=== PATIENT | female | born 1995 | race Caucasian/White ===

== ENCOUNTER 2017-07-18 17:25 | Inpatient (IN) | payer OTHER ==
--- NOTE | 2017-07-18 17:44 | EDPHY ---
H & P Time Seen by Provider: 07/18/17 17:27 HPI/ROS: CHIEF COMPLAINT: Suicidal ideation HISTORY OF PRESENT ILLNESS: 22-year-old female history of depression arrives via police on an M1 hold after endorsing suicidal ideation related to argument with her boyfriend. Patient has a history of depression, never been hospitalized for suicidal ideation or suicide attempt but does note she has recurrence thoughts of suicide. She has not habits definitive plan but did make statement to her boyfriend that she may use 1 of his guns to kill herself. Denies attempt. Her Zoloft was increased approximately 8 weeks ago. REVIEW OF SYSTEMS: A ten point review of systems was performed and is negative with the exception of the items mentioned in the HPI PAST MEDICAL & SURGICAL HISTORY: Depression SOCIAL HISTORY: Denies acute alcohol or drug use PHYSICAL EXAM (Prior to examination, patient consented to physical exam, hands were washed and my usual and customary physical exam procedures followed) 1) GENERAL: Well-developed, well-nourished, alert and oriented. Tearful calm, cooperative 2) HEAD: Normocephalic, atraumatic 3) HEENT: Pupils equal, round, reactive to light bilaterally. Sclera anicteric. 4) NECK: Full range of motion, no meningeal signs. 5) LUNGS: Clear auscultation bilaterally, no wheezes, no rhonchi, no retractions. 6) HEART: Regular rate and rhythm, no murmur, no heave, no gallop. 7) ABDOMEN: No guarding, no rebound, no focal tenderness, 8) MUSCULOSKELETAL: . No peripheral edema or discoloration. 9) BACK: No visual or palpable abnormality. 10) SKIN: No rash, no petechiae. 11) Psychiatric: Patient is oriented X 3, there is no agitation. Calm cooperative, tearful DIFFERENTIAL DIAGNOSIS: In no particular include but limited to depression, suicidal ideation, homicidal ideation Constitutional: Initial Vital Signs Temperature (C) 36.8 C 07/18/17 17:30 Heart Rate 85 07/18/17 17:30 Respiratory Rate 16 07/18/17 17:30 Blood Pressure 121/88 H 07/18/17 17:30 O2 Sat (%) 95 07/18/17 17:30 O2 Delivery Mode Room Air Allergies/Adverse Reactions: No Known Allergies Allergy (Unverified 07/18/17 17:42) Home Medications: Medication Instructions Recorded Sertraline HCl [Zoloft 100mg (*)] 07/18/17 Medical Decision Making ED Course/Re-evaluation: 8:51 p.m.: Mental health evaluation complete, patient accepted for [address] [facility] [address] Anderson accepting physician. EMTALA paperwork complete. Care of patient under supervision of secondary supervising physician Dr Garcia - Data Points Laboratory Results: Laboratory Results 07/18/17 17:35 07/18/17 17:35 07/18/17 07/18/17 07/18/17 17:35 17:35 17:32 WBC 7.73 10^3/uL 10^3/uL (3.80-9.50) RBC 4.82 10^6/uL 10^6/uL (4.18-5.33) Hgb 15.7 g/dL g/dL (12.6-16.3) Hct 45.5 % % (38.0-47.0) MCV 94.4 fL fL (81.5-99.8) MCH 32.6 pg pg (27.9-34.1) MCHC 34.5 g/dL g/dL (32.4-36.7) RDW 11.6 % % (11.5-15.2) Plt Count 329 10^3/uL 10^3/uL (150-400) MPV 8.9 fL fL (8.7-11.7) Neut % (Auto) 59.4 % % (39.3-74.2) Lymph % (Auto) 29.5 % % (15.0-45.0) Wilkin % (Auto) 9.1 % % (4.5-13.0) Eos % (Auto) 1.2 % % (0.6-7.6) Baso % (Auto) 0.5 % % (0.3-1.7) Nucleat RBC Rel Count 0.0 % % (0.0-0.2) Absolute Neuts (auto) 4.60 10^3/uL 10^3/uL (1.70-6.50) Absolute Lymphs (auto) 2.28 10^3/uL 10^3/uL (1.00-3.00) Absolute Monos (auto) 0.70 10^3/uL 10^3/uL (0.30-0.80) Absolute Eos (auto) 0.09 10^3/uL 10^3/uL (0.03-0.40) Absolute Basos (auto) 0.04 10^3/uL 10^3/uL (0.02-0.10) Absolute Nucleated RBC 0.00 10^3/uL 10^3/uL (0-0.01) Immature Gran % 0.3 % % (0.0-1.1) Immature Gran # 0.02 10^3/uL 10^3/uL (0.00-0.10) Sodium 137 mEq/L mEq/L (135-145) Potassium 4.5 mEq/L mEq/L (3.5-5.2) Chloride 105 mEq/L mEq/L (97-110) Carbon Dioxide 18 mEq/l L mEq/l (22-31) Anion Gap 14 mEq/L mEq/L (8-16) BUN 11 mg/dL mg/dL (7-23) Creatinine 0.7 mg/dL mg/dL (0.6-1.0) Estimated GFR > 60 Glucose 84 mg/dL mg/dL (70-100) Calcium 10.3 mg/dL mg/dL (8.5-10.4) Salicylates < 1.0 mg/dL L mg/dL (2.0-20.0) Urine Opiates Screen NEGATIVE (NEGATIVE) Acetaminophen < 10 mcg/mL L mcg/mL (10-30) Urine Barbiturates NEGATIVE (NEGATIVE) Ur Phencyclidine Scrn NEGATIVE (NEGATIVE) Ur Amphetamine Screen NEGATIVE (NEGATIVE) U Benzodiazepines Scrn NEGATIVE (NEGATIVE) Urine Cocaine Screen NON-NEGATIVE H (NEGATIVE) U Marijuana (THC) Screen NON-NEGATIVE H (NEGATIVE) Ethyl Alcohol < 10 mg/dL mg/dL (0-10) Departure - Departure Disposition: [facility] IP Clinical Impression: Suicidal ideation, Severe major depression Condition: Fair Referrals: NONE *PRIMARY CARE P,. [Primary Care Provider] - As per Instructions
[2017-07-18 17:46] LABS: PLATELET COUNT 329 10^3/uL (150-400)
[2017-07-19] MEDS ORDERED: ACETAMINOPHEN 325 MG TAB PO PRN (00:50)
[2017-07-19] MEDS ORDERED: MAGNESIUM HYDROXIDE 30 ML UDCUP PO PRN (00:50)
[2017-07-19] MEDS ORDERED: LORazepam 0.5 MG TAB PO PRN (00:50)
[2017-07-19] MEDS ORDERED: MAG HYDROX/AL HYDROX/SIMETH 30 ML UDCUP PO PRN (00:50)
[2017-07-19] MEDS ORDERED: NICOTINE POLACRILEX 2 MG GUM B PRN (00:50)
[2017-07-19] MEDS ORDERED: NALTREXONE HCL 50 MG TAB PO ONE (13:25)
--- NOTE | 2017-07-19 14:20 | BAPA ---
[f rep st] ADMISSION PSYCHIATRIC ASSESSMENT DATE OF SERVICE: 07/19/2017 IDENTIFICATION: This is a 22-year-old single white female who lives alone in an apartment. She is a [employer] [place] student. She has never been , has no children. Her parents live in [place]. CHIEF COMPLAINT: "I just had a bad day and said something to get back at my boyfriend." HISTORY OF PRESENT ILLNESS: The patient reports she and her boyfriend were drinking all day, including having approximately 8 drinks throughout the day. They also used cocaine and cannabis. They stayed up all night and into the next day were having numerous arguments, they had a long prolonged argument after she found out that he had been having a relationship with 1 of his ex- girlfriends. After a prolonged argument, she was screaming, shouting, threatened suicide, and threatened to get 1 of his guns to kill herself. The patient was taken to the emergency room by police, admitted to the inpatient unit on an M1 hold. At that point in the ER the patient had no alcohol in her system but her urine drug screen was positive for cannabis and cocaine. Patient reports that she has had brief intense mood swings with interpersonal conflict and impulsive acting out behaviors including punching shipley, throwing things, and yelling at people since she was a child. She reports she was diagnosed with ADHD in high school and took Concerta with benefit for 3 years in High School. She reports when she transitioned to college, she did not continue to take Concerta and did not have an outpatient psychiatrist. She reports from February 2017 to April 2017 she took Zoloft for complaints of depression, anxiety. She reports no benefit from this medication and possibly feeling worse and more agitated. She reports chronic anxiety, worrying about the future. She reports this is related to the fact that she is doing poorly in school, had several incomplete classes last semester, and is having financial stressors because her parents have been paying for her apartment and her school, but she has been doing poorly in school. She also reports anxiety related to interpersonal conflicts with friends and her boyfriend. The patient does admit smoking cannabis daily. She is unsure if this is contributing to her anxiety or not. She reports she binge drinks on alcohol up to 8 drinks a day. She reports she normally binge drinks once a week. She reports using cocaine once a month. She denies any recent or past trauma. She denies any episodes of sustained elevated activity and energy or decreased need for sleep. She does report sometimes having racing thoughts following arguments with peers or family only. She reports she consistently sleeps 6-8 hours nightly. She has never gone multiple days without sleep. She denies any history of grandiose delusions or decreased need for sleep. She does report since childhood being restless, having difficulty sitting still, difficulty with sustained attention, blurting things out, interrupting people, and feeling distracted. She reports these symptoms did get better with Concerta in High School. She does report that she made her suicidal threats to get a gun and kill herself after a prolonged argument with her boyfriend. She reports this statement was a way to 'get back' at her boyfriend and denies that she actually intended to harm herself. She does report that she has not recently harmed herself or been violent toward others. The patient denies any recent auditory hallucinations or paranoia. She denies any recent change in her physical health. PAST PSYCHIATRIC HISTORY: She denies any past suicide attempts. She did superficially cut herself in high school and one year ago, denies that these episodes were suicide attempts. She denies any past psychiatric hospitalizations. She does report a history of being physically combative with her family when she is upset as a child as well as throwing things and breaking things as an adult when she is upset. She reports irritability and insomnia with Adderall trial in the past but marked improvement with ADHD symptoms with Concerta 36mg, which she took for 3 years in high school. She reports when she took Concerta, she had normal sleep and stable mood. She reports no benefit from Zoloft, which she took from February to April and possibly feeling more agitated with it. ALLERGIES: She has no known drug allergies. PAST MEDICAL HISTORY: She also has a history of wisdom teeth extractions. She reports she takes an oral contraceptive pill for her contraception and has no plans for . SOCIAL HISTORY: She was adopted. Her parents live in [place]. She has never , has no children. She is a student at the [employer]. Lives alone in apartment, has a part-time job. Denies physical or sexual abuse as a child. Denies legal issues. Denies any guns in her home. FAMILY HISTORY: Unknown. She was adopted. LABORATORIES: In the emergency room, she had a urine tox screen positive for cannabis and cocaine. Her blood alcohol level was zero at that point, that was at 5:35 p.m. yesterday. Sodium 137, potassium 4.5, creatinine 0.7, glucose 84, calcium 10.3. White blood cell count 7.7, hemoglobin 15.7, platelet count 328. OBJECTIVE: VITAL SIGNS: She is 154 cm, 48 kg with BMI of 20.7, blood pressure 112/78, pulse 84, respiratory rate 14, pulse ox 94% on room air. She is afebrile. GENERAL: She is an alert, white female in no acute distress, ambulatory and cooperative. Her speech is regular rate and rhythm. She has a briefly dysphoric affect, anxious at times. Other times has humor, other times irritable. She denies thoughts to hurt herself or others today. She describes her mood as "upset that I'm here." Her thoughts are organized. She appears restless and was pacing the halls earlier. She denies auditory hallucinations or paranoia. She has a good memory, fair insight. She has questionable judgment based on recent behaviors. ASSESSMENT: Adjustment disorder with depressed mood. Borderline personality disorder. Attention deficit hyperactivity disorder. Cannabis related anxiety disorder Alcohol use disorder, severe. Cannabis use disorder, severe. Stimulant use disorder, mild. Rule out cyclothymia or generalized anxiety disorder The overall assessment is that the patient made a suicidal statement about getting her boyfriends gun and shooting herself after having a prolonged conflict with her boyfriend. She had been drinking heavily, using cannabis and cocaine over the previous 24 hours prior to admission. The patient has stressors including poor performance in school and break-up with her boyfriend. The patient endorses symptoms of attention deficit hyperactivity disorder since childhood, symptoms of borderline personality disorder since adolescence. She does report a history of significant benefit from Concerta, which she took for 3 years in the past. It is unclear if the patient has sustained depressive episodes in the past. She does report brief intense negative emotions lasting a few hours or a few days but does not appear to meet criteria for major depressive disorder. She denies any clear history of evin, but she does report a history of brief impulsivity and being over talkative at times. It is unclear if this is only a symptom of attention deficit hyperactivity disorder or possibly hypomania that she reports lasts a few hours or a few days at a time. The patient has a significant alcohol use disorder where she binge drinks alcohol, which is a risk factor for suicide. The patient currently denies suicidal ideation and does not have access to a gun at this time. The patient denies any past suicide attempts but does have a history of superficial cutting on herself when upset. Patient is calm and appropriate on the inpatient unit currently. It is unclear if the patient has mood stability or consistently appropriate judgment at this point. There is concern that patient has a cannabis induced anxiety disorder as the patient reports chronic anxiety but has been using cannabis daily. PLAN OF TREATMENT: 1. The patient is on an M1 hold dated July 18 at 1723. The patient is on suicide precautions to monitor for risk of self-harm. 2. Discussed assessment. Patient may have borderline personality disorder, adjustment disorder with depressed mood versus cyclothymia. Patient was agreeable to monitor mood stability on the inpatient unit to clarify diagnosis, to work on a safety plan, and to be connected to outpatient services. 3. The patient has had a significant decline in school functioning this year compared to high school concurrent with not taking Concerta anymore for ADHD and also having ongoing substance abuse. Patient was agreeable to restart methylphenidate. Will do 10 mg mid-day today and then start Ritalin sustained release 20 mg tomorrow morning. The patient reports past taking Concerta 36 mg a day. Discussed the risks of stimulants causing defects, miscarriage, agitation, irritability, insomnia, and bipolar disorder symptoms as well as seizures, tachycardia, and cardiac arrhythmia. Discussed that outpatient providers will not refill this medication in the future if using cannabis or cocaine or alcohol. 4. The patient is agreeable to start naltrexone for alcohol use disorder. Discussed the risk of hepatitis and blockade of narcotic pain killers. Will start 25 mg daily now and 50 mg daily starting tomorrow. Patient is willing to engage in outpatient substance use disorder treatment after discharge but is unwilling to go into a residential substance use disorder treatment program at this time. 5. Patient has possibly cannabis related anxiety disorder versus generalized anxiety disorder. Will start hydroxyzine 25 mg p.o. q.6 hours p.r.n. for anxiety. 6. The patient will contact her family regarding discharge planning. It is unclear if the patient will stay in [place] or return to [place] if the patient stays in [place]. She will follow up [facility] if she stays in [place]. 7. The patient does not have her oral contraceptive pill on the unit. Her serum test will be checked to rule out . Discussed with patient that psychiatric medications can cause defects and miscarriage. 8. Will also order a baseline thyroid, hemoglobin A1c, lipid panel, liver function tests to add onto the emergency room blood work. 9. Unable to reach patients parents on the phone. Patient did sign an STEPHANY for communication. Patient and staff spoke to parents in the ER to notify them of her admission. 10. Provided education about borderline personality disorder and benefit of having DBT treatment after discharge for emotion regulation skill building. /[id number]/MODL MTDD
[2017-07-19] MEDS: hydrOXYzine HCL 25 MG TAB PO PRN ×2 (14:52→21:10)
[2017-07-19] MEDS ORDERED: IBUPROFEN 600 MG TAB PO PRN (14:53)
--- NOTE | 2017-07-19 15:56 | BCON ---
[f rep st] BEHAVIORAL HEALTH CONSULTATION INTERNAL MEDICINE CONSULTATION. DATE OF CONSULTATION: 07/19/2017 REFERRING PHYSICIAN: Best Haywood MD REASON FOR REFERRAL: Medical clearance for inpatient behavioral health stay. HISTORY OF PRESENT ILLNESS: This patient was brought to the [facility] Emergency Department on an M1 hold by police. She had either been threatening suicide or threatening harm to her boyfriend who was breaking up with her with a plan to use one of her boyfriend's guns. She was evaluated by the mental health team and admitted for further psychiatric care. She currently complains of pain in her back from her shoulders to her pelvis. She wonders if it is due to the mattress that she was sleeping on. She is otherwise without acute complaints. PAST MEDICAL HISTORY: Depression. PAST SURGICAL HISTORY: She reports a history of wisdom teeth extraction. MEDICATIONS: She was taking sertraline. ALLERGIES: There are no known drug allergies. SOCIAL HISTORY: She lives in a 1 bedroom apartment [place]. She is a smoker. 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 FAMILY HISTORY: She does not know her family history and says she was adopted. REVIEW OF SYSTEMS: She reports that she has had some weight loss lately and that her weight fluctuates typically. She denies fevers or chills. She denies sweats. She denies cough or dyspnea and otherwise a 10-point review of systems is negative. She reports an itchy rash on her left arm where she had tape applied after her blood draw. PHYSICAL EXAM: VITAL SIGNS: Blood pressure is 112/78, heart rate 84, respiratory rate 14, oxygen saturation 94% on room air, temperature 36.6 degrees. Her weight is 48 kg for a body mass index of 20.7. GENERAL: This is a well-nourished, well-developed woman, appears her chronologic age, cooperative and in no acute distress. HEENT: Extraocular movements are intact. Pupils are equal, round, reactive to light. Mucous membranes are moist. Dentition is in good condition. She has an uncrowded airway, Mallampati class 1. She has mild erythema over the soft palate. NECK: Supple. HEART: There is a regular rate and rhythm with no murmurs, rubs, or gallops. LUNGS: Are clear to auscultation bilaterally. ABDOMEN: Benign. EXTREMITIES: There is no cyanosis, clubbing, or edema. NEUROLOGIC: She is alert and oriented x3. Cranial nerves 2-12 are grossly intact. There is no focal weakness. Sensation is intact to light touch. Deep tendon reflexes are 2 + bilaterally at the biceps, patellar, and Achilles tendons, and her gait is within normal limits. SKIN: Erythematous rash left antecubital fossa which appears to be in the pattern of the application of tape. LABORATORY STUDIES: From the emergency department CBC was entirely within normal limits. Serum chemistry revealed a slightly low carbon dioxide at 18, otherwise renal function and electrolytes were within normal limits. Toxicology screen in the serum was negative for salicylates, acetaminophen or ethyl alcohol, and in the urine was non-negative for cocaine and marijuana. ASSESSMENT/RECOMMENDATIONS: 1. Mental health issues, pending further evaluation and management per Psychiatry and the mental health team. 2. Tobacco dependence syndrome. Encouraged smoking cessation. She reported that she is trying to quit and is using E cigarettes as a substitute. She was advised that she would need to quit the E cigarettes also in the future. 3. Polysubstance abuse. She might benefit from specific substance abuse counseling. 4. Back pain, unclear etiology. Does not seem to affect her functionally. I have added p.r.n. ibuprofen to her medications. She was already prescribed p.r.n. acetaminophen. 5. Dermatitis. Possible allergy to adhesives in the tape that was used in the emergency department after a blood draw. I have ordered triamcinolone cream to be applied three times daily and this can be discontinued when the rash and pruritus resolve. I see no medical contraindications to this patient's continued stay on the inpatient behavioral health unit or to any psychiatric medications or procedures. Thank you very much for including me in the care of this patient and please do not hesitate to contact me or the hospitalist service should there be need for further medical evaluation. /[id number]/MODL MTDD
[2017-07-19] MEDS: TRIAMCINOLONE 0.025% 15 GM CRTUBE TP SCH ×2 (16:51→20:31)
[2017-07-20] MEDS: NALTREXONE HCL 50 MG TAB PO SCH (08:55)
[2017-07-20] MEDS: METHYLPHENIDATE SR 20 MG TAB.SR PO SCH (08:55)
[2017-07-20] MEDS: TRIAMCINOLONE 0.025% 15 GM CRTUBE TP SCH ×3 (08:55→21:01)
[2017-07-20] MEDS: CEPACOL LOZENGE PO PRN ×3 (08:56→12:58)
--- NOTE | 2017-07-20 10:45 | SOAPPROG ---
SOAP Progress Note Assessment/Plan: Assessment: Adjustment Disorder with depressed mood ADHD combined type Cannabis related anxiety disorder Borderline Personality Disorder symptoms Alcohol Use Disorder - severe Cannabis Use Disorder - severe Stimulant Use Disorder - mild Nicotine Use Disorder - mild Patient admitted on M-1 for making statements about shooting herself with boyfriends gun after they argued and broke up following 1-2 day alcohol, cannabis, and cocaine binge. Patient reports a history of ADHD and taking Concerta for 2-3 years in High School with benefit, hasn't taken stimulants this school year and has had a decline in school functioning concurrent with brief mood swings, substance abuse. Patient appears more calm and euthymic with appropriate judgment this AM. Plan: Patient is on a M-1 hold, plan discharge tomorrow if stable Nicotine Patch 14mg TD for nicotine use disorder Ritalin SR 20mg QAM Naltrexone 50mg QAM for alcohol use disorder Hydroxyzine 25mg PRN anxiety Discussed residential and IOP options for substance use disorder treatment Patient has psychiatry follow up at [facility] Reviewed strengths, coping skills, supports Discussed motivation for sobriety Monitor mood stability, risk of self-harm Rapid strep test/swab 07/20/17 10:51 Subjective: CC: "I feel pretty good but have a sore throat" Patient reports some neck swelling and sore throat. Reports overall sleeping well, tolerating Ritalin and Naltrexone without side effects. Some reduced anxiety with Hydroxyzine. Reports wanting to quit alcohol and cannabis in order to succeed in school. Reports not wanting residential substance abuse treatment or moving back with parents in [facility], but interested in outpatient groups and individual therapy for mood regulation and substance abuse recovery. Reports feeling calm and euthymic and hopeful this AM. Reports plan to exercise, meditate, listen to music, and talk with friends if having severe negative emotions. Denies suicidal thoughts or plans. Reports suicidal threat prior to admission was impulsive and related to anger at being rejected by boyfriend. Reports no plans to hurt herself or others. Denies racing thoughts , agitation, or irritability. Smokes 1/2 PPD wants to quit. Objective: Vital Signs Temp Pulse Resp BP Pulse Ox 36.6 C 93 14 113/78 97 07/20/17 06:00 07/20/17 06:00 07/20/17 06:00 07/20/17 06:00 07/20/17 06:00 Alert WF, calm. Speech RRR. Mood: Affect: reactive, euthymic. Thoughts organized. Denies SI, violent thoughts, AH or paranoia. Fair insight, appropriate judgment Staff report patient slept well overnight. Had rash near tape use on left arm reduced with steroid cream. Calm and attending groups and meals. HgbA1c, LFTs, Lipids, TSH WNL; BHCG negative. - Time Spent With Patient Time Spent With Patient: 30 minutes - Pending Discharge Pending Discharge Within 24 Hours: Yes Pending Discharge Date: 07/21/17 Pending Discharge Time: 11:00 ICD10 Worksheet Patient Problems: Problems Problem Status Onset Borderline personality disorder Acute Cocaine abuse Acute Cannabis use disorder, moderate, dependence Acute Alcohol use disorder Acute Attention deficit hyperactivity disorder (ADHD), combined type Acute Adjustment disorder with depressed mood Acute
[2017-07-20] MEDS: NICOTINE 14 MG/24 HR PATCH TD SCH (12:01)
[2017-07-20] MEDS: hydrOXYzine HCL 25 MG TAB PO PRN ×2 (12:58→21:03)
[2017-07-20] MEDS: PENICILLIN VK 250 MG TAB PO SCH ×2 (16:37→21:01)
[2017-07-20] MEDS ORDERED: MELATONIN 3 MG TAB PO PRN (22:24)
[2017-07-21] MEDS: PENICILLIN VK 250 MG TAB PO SCH ×2 (05:56→11:50)
[2017-07-21 06:45] VITALS: BP 111/84; PULSE 81; RESP 16; TEMP 97.7; O2SAT 94
[2017-07-21] MEDS: NALTREXONE HCL 50 MG TAB PO SCH (08:57)
[2017-07-21] MEDS: METHYLPHENIDATE SR 20 MG TAB.SR PO SCH (08:57)
[2017-07-21] MEDS: NICOTINE 14 MG/24 HR PATCH TD SCH (08:58)
[2017-07-21] MEDS: TRIAMCINOLONE 0.025% 15 GM CRTUBE TP SCH (08:58)
[2017-07-21] MEDS: hydrOXYzine HCL 25 MG TAB PO PRN (09:01)
--- NOTE | 2017-07-21 09:16 | SOAPPROG ---
SOAP Progress Note Assessment/Plan: Assessment: Adjustment Disorder with depressed mood versus Major Depressive Disorder or Cyclothymia ADHD combined type Cannabis related anxiety disorder Borderline Personality Disorder symptoms Alcohol Use Disorder - severe Cannabis Use Disorder - severe Stimulant Use Disorder - mild Nicotine Use Disorder - mild - on nicotine patch Pharyngitis - strep - on penicillin Patient admitted on M-1 for making statements about shooting herself with boyfriends gun after they argued and broke up following 1-2 day alcohol, cannabis, and cocaine binge. Patient reports a history of ADHD and taking Concerta for 2-3 years in High School with benefit, hasn't taken stimulants recently and has had a decline in school functioning concurrent with brief mood swings, substance abuse. Patient appears calm and euthymic this AM but reports depressive/insomnia symptoms. Plan: Discussed goals and motivation for sobriety Reviewed PHILLIP treatment options - patient wants outpatient treatment at [facility]/; SIGNAL phone # given to patient Ritalin SR 20mg QAM Naltrexone 50mg QAM for alcohol use disorder Hydroxyzine 25mg PRN anxiety Start Trazodone 50mg QHS for insomnia/depression Discussed risk of agitation, evin, psychosis, SI with Ritalin/Trazodone Discussed risk of defects, miscarriage with psychiatric medications; using condoms until compliant with OCP for > 2months Patient has psychiatry follow up at -[facility] Reviewed strengths, coping skills, supports Reviewed safety plan Discharge home 07/21/17 09:20 Subjective: CC: "I feel good but tired because I didn't sleep well.' Patient reports overall feeling good and hopeful regarding discharge. Reports talking to her parents yesterday and mother may come to [place] to provide support. Reports not wanting residential substance abuse treatment placement but is willing to get individual and group therapy for substance abuse after discharge. Reports goal is to stay sober in order to complete classes and graduate and get a job so that she can support herself separate from her parents and eventually get a job. Reports she feels confident she can stay away from friends who use drugs/alcohol and set limits and boundaries. Reports no suicidal thoughts since admission and regrets her behavior. Reports tolerating Ritalin, Naltrexone, Penicillin without side effects. Reports episodic low mood 'getting down on myself' with difficulty falling asleep and anhedonia over past 6 months concurrent with alcohol and cannabis abuse. Reports interest in starting an antidepressant again to be monitored by outpatient team. Denies any clear history of sustained elevated mood, elevated activity, decreased need for sleep, expansive mood, or grandiosity. Denies feeling irritable and agitated. Reports improved impulse control since starting Ritalin "I don't react as quickly, more calm, able to have a more normal back and forth conversation on the phone with my family.' Reports plan to listen to music, exercise, talk to family/friends if having severe emotional distress. Objective: Vital Signs Temp Pulse Resp BP Pulse Ox 36.5 C 81 16 111/84 H 94 07/21/17 06:00 07/21/17 06:00 07/21/17 06:00 07/21/17 06:00 07/21/17 06:00 Alert WF, calm, pleasant. Speech RRR. Mood 'good but tired because I didn't sleep well.' Affect euthymic and reactive, briefly sad when discussing stressors. Denies SI or HI or AH or paranoia. Fair insight, appropriate judgment. Staff report patient had disrupted sleep but calm and pleasant on unit, attending groups, denying SI, appearing euthymic and appropriate. - Time Spent With Patient Time Spent With Patient: 35 minutes - Pending Discharge Pending Discharge Within 24 Hours: Yes Pending Discharge Date: 07/21/17 Pending Discharge Time: 11:00 ICD10 Worksheet Patient Problems: Problems Problem Status Onset Adjustment disorder with depressed mood Acute Alcohol use disorder Acute Attention deficit hyperactivity disorder (ADHD), combined type Acute Borderline personality disorder Acute Cannabis use disorder, moderate, dependence Acute Cocaine abuse Acute Pharyngitis Acute
--- NOTE | 2017-07-21 11:58 | BDS ---
[f rep st] BEHAVIORAL HEALTH DISCHARGE SUMMARY IDENTIFICATION: This is a 22-year-old single white female who lives alone in an apartment. 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 Her parents live in [place]. The patient has never been and has no children. REASON FOR ADMISSION: Please see initial psychiatric evaluation from July 19, 2017. The patient reportedly had been skipping school and not doing her homework. She had been binge drinking 8 to 10 drinks several days a week, smoking cannabis daily and having episodic cocaine use. She had been having a lot of interpersonal conflicts with her boyfriend. She threatened to kill herself and to get his gun to shoot herself after he reported he wanted to date someone else. She apparently was emotionally dysregulated, screaming, yelling, and had called and texted her boyfriend 40 times in a 24 hour period. She had been drinking over the previous 24 hours, using cannabis and cocaine. She was taken to the emergency room by paramedics and police, admitted to the inpatient psychiatric unit on an M1 hold. BRIEF PSYCHIATRIC HISTORY: The patient reports a history of attention deficit hyperactivity disorder symptoms starting in childhood. She reported taking Concerta for attention deficit hyperactivity disorder for 3 years in high school with benefit. She reports a history of side effects from Adderall including irritability. She had been having problems with severe alcohol, cannabis and cocaine abuse over the past year with a decline in school functioning as well as conflict with her parents in [place] who were paying for her school. The patient took Zoloft for 3 months in the fall of 2016 for depression and anxiety, but reported no benefit from this medication. The patient did endorse anxiety symptoms starting after she started using cannabis daily and bingeing on alcohol. The patient denied past substance abuse treatment. She had been in outpatient treatment at [facility]. She denied any prior psychiatric hospitalizations. She reported history of being combative with her parents in the past, but no history of severe violence toward others or arrests for violent crimes. She denied prior suicide attempts. She did report superficially cutting on herself in the past when upset with others, but these were not suicide attempts. PAST MEDICAL HISTORY: The patient takes oral contraceptive pills for control. She has a history of wisdom teeth extractions. ALLERGIES: No known drug allergies. HOSPITAL COURSE: The patient was admitted on the inpatient unit on an M1 hold due to concern she was a danger to herself. She apparently had reported that she was getting her boyfriend's gun and shoot herself. She denied any access to a gun in her own apartment. She reported she only made the statement because she went to "get back" at her boyfriend for breaking up with her. She denied any actual intent to harm herself. She denied recurrent suicidal thoughts prior to admission. She admitted bingeing on alcohol, cannabis and cocaine prior to admission. She reported she was interested in getting outpatient substance abuse treatment, but was not interested in going into a residential substance abuse treatment program. She was agreeable to start naltrexone for alcohol use disorder. She was warned about the blockade of opiate receptors and opiate pain medicines as well as risk of hepatitis and nausea. She tolerated naltrexone on the unit without problems. The patient had a long history of attention deficit hyperactivity disorder, but had not been taking stimulants for about 2 years. She was agreeable to restart methylphenidate for attention deficit hyperactivity disorder. She was given a 10 mg dose and then started on Ritalin SR 20 mg p.o. q.a.m. The patient reported marked improvement in her concentration, impulse control, and reduced emotional reactivity with this medication and reduction in her chronic restlessness and inattention. The patient reported history of sleep disturbance and low mood over the past year concurrent with substance abuse. It is unclear if she has underlying major depressive disorder or if this is a substance induced mood disorder. The patient on the unit did report trouble sleeping despite being sober on the unit and was prescribed trazodone 50 mg at night for depression and insomnia. She was also prescribed hydroxyzine 25 mg daily p.r.n. for anxiety. It appears the patient has primarily cannabis related anxiety disorder as her anxiety symptoms escalated in the past year concurrent with daily cannabis abuse. The patient on the unit was calm, appropriate, able to attend groups, did not appear to be in severe emotional distress. She denied any history of manic, grandiosity, decreased need for sleep, sustained elevated energy, sustained elevated mood or any history of grandiose delusions. The patient had limited motivation for substance abuse treatment. She declined referral to residential substance use treatment. She also declined to return to live with her parents in [place] in order to be in a sober living environment. The patient's parents were contacted about her admission. The patient was warned about the risks of defects, miscarriage with psychiatric medications. She was warned about the risk of Ritalin causing psychosis, insomnia, agitation, tachycardia, seizures. She was warned about the risk of antidepressants including trazodone causing bipolar disorder symptoms and suicidal ideation. The patient did not have her oral contraceptive pill on the unit and was told to use condoms if sexually active after discharge until she had been compliant with oral contraceptive pills for at least 2 months to reduce the risk of . The patient did have pharyngitis symptoms and had a positive rapid strep test and was started on penicillin. The patient was referred back to [facility] where she had previously gotten treatment for outpatient psychiatric treatment after discharge. The recommendation is that she receive medication management for attention deficit hyperactivity disorder, dialectal behavior therapy, and further evaluation of a possible mood disorder along with getting substance abuse treatment groups and continuation of naltrexone for alcoholism. The patient was warned extensively about the risk of cannabis causing anxiety and psychosis and the dangers of cocaine causing mood swings, psychosis, anxiety. The patient was given a nicotine patch for nicotine use disorder. The patient was endorsing numerous symptoms of borderline personality disorder. She was given education about this condition and encouraged to get individual psychotherapy for emotion regulation and improvement in her interpersonal skills after discharge to reduce the risk of impulsive self-harm. On the unit, the patient did not have severe emotional distress, did not appear extremely depressed or manic on the unit. She did display 'splitting behaviors' and appeared to have severe interpersonal hypersensitivity and externalized her problems by blaming her boyfriend and her parents for her problems. She did tolerate Ritalin and did appear to be less restless and appeared more calm with conversation after starting Ritalin. The patient was counseled that Ritalin would not be refilled by an outpatient provider unless she was sober from cannabis, cocaine and alcohol and engaged in outpatient psychotherapy. The patient denied any access to a gun after discharge. She completed a safety plan outlining her symptoms, coping skills, and support network. CONDITION ON DISCHARGE: She is an alert white female in no acute distress, is ambulatory, cooperative, pleasant. No tremors or weakness. Good eye contact. Her affect is euthymic and pleasant. Her mood is "pretty good." She does report episodic low mood and difficulty falling asleep at night. She denies any thoughts to hurt herself or others. She denies auditory hallucinations or paranoia. She has fair memory, fair insight and appropriate judgment. CONSULTATIONS: The patient was seen by the hospitalist, Dr. Cat, on July 19, 2017 for baseline physical exam. PROCEDURES: None. LABORATORY: There are no labs pending. She had a white blood cell count of 7.7 , hemoglobin 15.7, platelet count 329. Sodium 137, potassium 4.5, creatinine 0.7, glucose 84. Hemoglobin A1c 5.0, calcium 10.3, AST 34, ALT 36. Triglycerides 110, LDL 42, HDL 129, TSH 1.4. Serum beta hCG was negative. Urine tox screen was positive for cocaine and cannabis. Negative for other drugs of abuse. Her blood was negative for alcohol, salicylates and acetaminophen upon admission. DISCHARGE DIAGNOSIS: Adjustment disorder with depressed mood, rule out major depressive disorder or cyclothymia. Attention deficit hyperactivity disorder - combined type Cannabis related anxiety disorder Borderline personality disorder Alcohol use disorder, severe Cannabis use disorder, severe Stimulant use disorder, mild Nicotine use disorder, mild Streptococcal pharyngitis DISCHARGE MEDICATIONS: Ritalin sustained release 20 mg by mouth daily, bubble pack, naltrexone 50 mg by mouth daily, nicotine patch 14 mg transdermal daily [id number], penicillin 500 mg p.o. twice daily for 7 days, trazodone 50 mg p.o. at bedtime, bubble pack, #30. Also prescribed hydroxyzine 25 mg p.o. q.6 hours p.r.n. for anxiety, #15, bubble pack, [id number] melatonin 3 mg at bedtime p.r.n. for insomnia. Patient has an oral contraceptive pill at home that she was taking prior to admission. The patient was also given instructions to see a primary care doctor in 1 week at [facility] to re-evaluate her streptococcal pharyngitis. She was also referred back to [facility] for mental health treatment after discharge. The patient was given a phone number for [facility], which is a substance abuse treatment referral line if she wanted to get a higher level of substance use treatment after discharge. The patient declined referral to residential substance abuse treatment or to return to [place] with her parents. LEGAL STATUS: She was admitted on M1 hold but will be discharged to be receiving outpatient treatment on a voluntary basis. /[id number]/MODL MTDD
== END 2017-07-21 12:15 | disposition home or self-care (01) | DRG 881 ==
LOC: BBEH 07-19 00:18
PROVIDERS: ADMIT Psychiatry & Neurology Psychiatry; ATTEND Psychiatry & Neurology Psychiatry
DX: F43.21 Adjustment disorder with depressed mood (principal); F90.9 Attention-deficit hyperactivity disorder, unspecified type; F12.980 Cannabis use, unspecified with anxiety disorder; F60.3 Borderline personality disorder; Z72.89 Other problems related to lifestyle; F15.90 Other stimulant use, unspecified, uncomplicated; F17.200 Nicotine dependence, unspecified, uncomplicated; J02.0 Streptococcal pharyngitis
CPT/HCPCS: 80305; G0480